=== PATIENT | female | born 1975 | race Caucasian/White ===

== ENCOUNTER 2019-04-04 11:12 | Emergency (ER) | payer OTHER ==
[~2019-04-04] VITALS: Ht 165.1 cm; Wt 87.4 kg
[2019-04-04 11:42] VITALS: BP 148/94
[2019-04-04] MEDS ORDERED: DEXAMETHASONE 4 MG TABLET ONE (11:53)
[2019-04-04] MEDS ORDERED: DEXAMETHASONE 4 MG TABLET PO ONE (12:00)
--- NOTE | 2019-04-04 12:15 | NUR ---
PT REFUSING RING REMOVAL BY TECH. PT STATING "I DON'T WANT TO BE CHARGED $3,000 TO CUT OFF MY RING. I CAN JUST DO IT AT HOME. IT'S CUTE THAT NONE OF YOU KNOW HOW MUCH ANYTHING COSTS HERE." PT ALSO REFUSING FOOT CLEANING AND DRESSING. PT STANDING AT NURSE'S STATION SPEAKING VERY LOUDLY AND IS VERY ANXIOUS AND SHORT WITH STAFF.
== END 2019-04-04 12:22 | disposition home or self-care (01) ==
LOC: ED 12:14
DX: R21 Rash and other nonspecific skin eruption (principal)
CPT/HCPCS: 99283

== ENCOUNTER 2020-09-20 21:31 | Emergency (ER) | payer SELFPAY ==
[~2020-09-20] VITALS: Ht 165.1 cm; Wt 80.0 kg
[2020-09-20] MEDS ORDERED: DIPH,PERTUSS(ACELL),TET VAC/PF 0.5 ML IM-VACC ONE ×2 (22:00→22:45)
[2020-09-20] MEDS ORDERED: LIDOCAINE 1%-EPI 1:100K, 20ML SQ ONE (22:00)
--- NOTE | 2020-09-20 22:39 | NUR ---
PT TO ROOM FROM LOBBY AT THIS TIME
[2020-09-20] MEDS ORDERED: LIDOCAINE-MPF 1%, 5ML ONE (22:45)
--- NOTE | 2020-09-20 22:54 | NUR ---
DONNIE AT BEDSIDE FOR I&D AND ASSESSMENT
[2020-09-21] VITALS: BP 129/84
[2020-09-21] MEDS ORDERED: KETOROLAC 30 MG/1 ML IM ONE
[2020-09-21] MEDS ORDERED: KETOROLAC 30 MG/1 ML ONE (00:02)
--- NOTE | 2020-09-21 00:40 | NUR ---
UPON D/C PT ROOM AND PT HAD STRONG ODOR OF MARIJUANA
--- NOTE | 2020-09-21 00:41 | NUR ---
DRESSING APPLIED, Patient/Caregiver given discharge instructions and they have confirmed that they understand the instructions. Patient ambulatory with steady gait.
== END 2020-09-21 00:42 ==
LOC: ED 23:05
DX: L03.116 Cellulitis of left lower limb (principal); L02.415 Cutaneous abscess of right lower limb; F10.10 Alcohol abuse, uncomplicated; F15.10 Other stimulant abuse, uncomplicated; F17.210 Nicotine dependence, cigarettes, uncomplicated; Z72.9 Problem related to lifestyle, unspecified; Y90.9 Presence of alcohol in blood, level not specified
CPT/HCPCS: 10060; 90471; 90715; 96372; 99284; 99406; J1885

== ENCOUNTER 2020-09-22 15:37 | Emergency (ER) | payer SELFPAY ==
[~2020-09-22] VITALS: Ht 165.1 cm; Wt 79.7 kg
[2020-09-22 16:07] VITALS: BP 162/110
--- NOTE | 2020-09-22 16:46 | NUR ---
REPAIRER WELDING SYSTEMS AND EQUIPMENT: PT TO ROOM FROM SUSANA MARINELLI
[2020-09-22] MEDS ORDERED: LIDOCAINE-MPF 1%, 5ML ONE (17:49)
--- NOTE | 2020-09-22 18:04 | NUR ---
Patient/Caregiver given discharge instructions and they have confirmed that they understand the instructions. Patient ambulatory with steady gait.
== END 2020-09-22 18:06 | disposition home or self-care (01) ==
LOC: ED 17:29
DX: L03.115 Cellulitis of right lower limb (principal); Z48.01 Encounter for change or removal of surgical wound dressing
CPT/HCPCS: 99283